=== PATIENT | male | born 1955 | race Caucasian/White ===

== ENCOUNTER 2020-05-04 13:07 | Emergency (ER) | payer OTHER ==
[~2020-05-04] VITALS: Ht 190.5 cm; Wt 108.9 kg
[~2020-05-04 13:07] MED LIST: NAPR550 PO
[2020-05-04 14:37] LABS: BASOPHILS ABSOLUTE AUTO 0.06 K/mm3 (0.00-0.23); BASOPHILS PERCENT AUTO 1 % (0-2); EOSINOPHILS ABSOLUTE AUTO 0.04 K/mm3 (0.00-0.68); EOSINOPHILS PERCENT AUTO 1 % (0-6); Hematocrit 47.4 % (37.0-53.0); IMMATURE GRAN ABSOLUTE AUTO 0.03 K/mm3 (0.00-0.10); IMMATURE GRAN PERCENT AUTO 0 % (0-1); LYMPHOCYTES ABSOLUTE AUTO 1.42 K/mm3 (0.84-5.20); LYMPHOCYTES PERCENT AUTO 17 % (21-46); MONOCYTES ABSOLUTE AUTO 0.86 K/mm3 (0.16-1.47); MONOCYTES PERCENT AUTO 10 % (4-13); Mean Corpuscular HGB 34.1 pg (26.0-34.0); Mean Corpuscular HGB Conc 33.8 g/dL (31.5-36.5); Mean Corpuscular Volume 101 fL (80-100); Mean Platelet Volume 9.3 fL (9.1-12.4); NEUTROPHILS ABSOLUTE AUTO 6.05 K/mm3 (1.96-9.15); NEUTROPHILS PERCENT AUTO 71 % (41-73); Platelet Count 302 K/mm3 (150-400); RDW Coefficient Variation 12.8 % (11.7-14.2); RDW Standard Deviation 47.8 fL (35.1-46.3); Red Blood Cell Count 4.69 M/mm3 (4.30-5.90); White Blood Cell Count 8.46 K/mm3 (4.00-11.30)
[2020-05-04 14:58] LABS: Alanine Aminotransfer (ALT/SGP 83 U/L (12-78); Albumin, Blood 3.8 g/dL (3.4-5.0); Albumin/Globulin Ratio 1.1 (0.8-1.8); Alk Phos 76 U/L (50-136); Anion Gap 4 mmol/L (6-16); Aspartate Aminotrans (AST/SGOT 44 U/L (12-37); Bilirubin, Total 0.9 mg/dL (0.1-1.0); Blood Urea Nitrogen 7 mg/dL (8-24); Bun/Creatinine Ratio 7.2 (12.0-20.0); CO2, Blood 25 mmol/L (21-32); Calcium, Blood 9.3 mg/dL (8.5-10.1); Chloride, Blood 107 mmol/L (98-108); Creatinine, Blood 0.97 mg/dL (0.60-1.20); Globulin, Blood 3.6 g/dL (2.2-4.0); Glomerular Filtration Rate >60 (60-); Glucose, Blood 98 mg/dL (70-99); Potassium, Blood 4.4 mmol/L (3.5-5.5); Sodium, Blood 136 mmol/L (136-145); Total Protein, Blood 7.4 g/dL (6.4-8.2)
[2020-05-05] MEDS ORDERED: CEPH500 PO (10:31)
== END 2020-05-04 16:30 | disposition left against medical advice (07) ==
LOC: ER 13:07
PROVIDERS: Emergency Medicine
DX: S69.92XA Unspecified injury of left wrist, hand and finger(s), initial encounter (principal); X58.XXXA Exposure to other specified factors, initial encounter
CPT/HCPCS: 36415; 80053; 83605; 85025; 99283

== ENCOUNTER 2020-05-05 08:35 | Emergency (ER) | payer OTHER ==
[~2020-05-05] VITALS: Ht 182.9 cm; Wt 111.1 kg
[2020-05-05] MEDS ORDERED: CEPH500 PO (10:31)
== END 2020-05-05 10:39 | disposition home or self-care (01) ==
LOC: ER 08:35
DX: L03.012 Cellulitis of left finger (principal); Z88.5 Allergy status to narcotic agent
CPT/HCPCS: 20600; 73140; 99283-25

== ENCOUNTER 2020-07-04 09:02 | Emergency (ER) | payer OTHER ==
[~2020-07-04] VITALS: Ht 190.5 cm; Wt 108.9 kg
[~2020-07-04 09:02] MED LIST changes: +CEPH500 PO
[2020-07-04] MEDS ORDERED: DILT30 PO (09:14)
[2020-07-04 09:29] LABS: BASOPHILS ABSOLUTE AUTO 0.08 K/mm3 (0.00-0.23); BASOPHILS PERCENT AUTO 1 % (0-2); EOSINOPHILS ABSOLUTE AUTO 0.03 K/mm3 (0.00-0.68); EOSINOPHILS PERCENT AUTO 0 % (0-6); Hematocrit 47.7 % (37.0-53.0); IMMATURE GRAN ABSOLUTE AUTO 0.02 K/mm3 (0.00-0.10); IMMATURE GRAN PERCENT AUTO 0 % (0-1); LYMPHOCYTES ABSOLUTE AUTO 1.17 K/mm3 (0.84-5.20); LYMPHOCYTES PERCENT AUTO 14 % (21-46); MONOCYTES ABSOLUTE AUTO 0.82 K/mm3 (0.16-1.47); MONOCYTES PERCENT AUTO 10 % (4-13); Mean Corpuscular HGB 34.3 pg (26.0-34.0); Mean Corpuscular HGB Conc 33.5 g/dL (31.5-36.5); Mean Corpuscular Volume 102 fL (80-100); Mean Platelet Volume 9.5 fL (9.1-12.4); NEUTROPHILS ABSOLUTE AUTO 6.12 K/mm3 (1.96-9.15); NEUTROPHILS PERCENT AUTO 74 % (41-73); Platelet Count 276 K/mm3 (150-400); RDW Coefficient Variation 12.9 % (11.7-14.2); RDW Standard Deviation 49.5 fL (35.1-46.3); Red Blood Cell Count 4.67 M/mm3 (4.30-5.90); White Blood Cell Count 8.24 K/mm3 (4.00-11.30)
[2020-07-04 09:49] LABS: Source, Urine Clean Catch
[2020-07-04 09:50] LABS: Alanine Aminotransfer (ALT/SGP 57 U/L (12-78); Albumin, Blood 3.8 g/dL (3.4-5.0); Albumin/Globulin Ratio 1.1 (0.8-1.8); Alk Phos 72 U/L (50-136); Anion Gap 7 mmol/L (6-16); Aspartate Aminotrans (AST/SGOT 32 U/L (12-37); Bilirubin, Total 0.6 mg/dL (0.1-1.0); Blood Urea Nitrogen 7 mg/dL (8-24); Bun/Creatinine Ratio 8.5 (12.0-20.0); CO2, Blood 24 mmol/L (21-32); Calcium, Blood 9.1 mg/dL (8.5-10.1); Chloride, Blood 107 mmol/L (98-108); Creatinine, Blood 0.82 mg/dL (0.60-1.20); Globulin, Blood 3.6 g/dL (2.2-4.0); Glomerular Filtration Rate >60 (60-); Glucose, Blood 123 mg/dL (70-99); Potassium, Blood 4.3 mmol/L (3.5-5.5); Sodium, Blood 138 mmol/L (136-145); Total Protein, Blood 7.4 g/dL (6.4-8.2); Troponin I <0.015 ng/mL (0.000-0.040)
[2020-07-04 09:52] LABS: Appearance, Urine Clear (Clear); Bilirubin, Urine Neg (Neg); Blood, Urine 1+ (Neg); Color, Urine Yellow (P-Yellow); Glucose Qualitative, Urine Neg (Neg); Ketones, Urine 3+ (Neg); Leukocyte Esterase, Urine 1+ (Neg); Nitrite, Urine Neg (Neg); Protein, Urine 2+ (Neg); Specific Gravity, Urine 1.015 (1.003-1.022); Urobilinogen, Urine 1+ (Normal); pH, Urine 6.5 (5.0-8.0)
[2020-07-04 10:12] LABS: Bacteria Rare /hpf; Red Blood Cells, Urine 0-2 /hpf (0-2); Squamous Epithelial Cells Rare /hpf (Few); White Blood Cells, Urine 0-2 /hpf (0-5)
[2020-07-04] MEDS ORDERED: Zofran4 MG PO (11:21)
[2020-07-04] MEDS ORDERED: Norco 5-325 Ta1 EACH PO (11:21)
== END 2020-07-04 11:43 | disposition home or self-care (01) ==
LOC: ER 09:02
PROVIDERS: Physician Assistant
DX: R10.9 Unspecified abdominal pain (principal); R19.7 Diarrhea, unspecified; K43.9 Ventral hernia without obstruction or gangrene; I10 Essential (primary) hypertension; Z87.891 Personal history of nicotine dependence
CPT/HCPCS: 71046; 74177; 80053; 81001; 83690; 84484; 85025; 87086; 93005; 93010; 96374-59; 96375; 99285-25; J1170; J2405; Q9967

== ENCOUNTER 2022-08-29 07:57 | Day surgery (SDC) | payer OTHER ==
[~2022-08-29] VITALS: Ht 190.5 cm; Wt 107.6 kg
[~2022-08-29 07:57] MED LIST changes: +DILT30 PO; +GABA300 PO; +Norco 5-325 Ta1 EACH PO; +Zofran4 MG PO
[2022-08-29] MEDS ORDERED: ALLO300 (08:46)
[2022-08-29] MEDS ORDERED: ALBU90OI (08:46)
== END 2022-08-29 10:20 | disposition home or self-care (01) ==
LOC: ORSCSDS 07:57
PROVIDERS: Internal Medicine Gastroenterology
PROC: 0DB68ZX Excision of Stomach, Via Natural or Artificial Opening Endoscopic, Diagnostic (ICD-10-PCS; principal; 2022-08-29 09:30)
DX: R13.10 Dysphagia, unspecified (principal); J44.9 Chronic obstructive pulmonary disease, unspecified; I10 Essential (primary) hypertension; F17.210 Nicotine dependence, cigarettes, uncomplicated; E66.9 Obesity, unspecified; Z79.899 Other long term (current) drug therapy
CPT/HCPCS: 88305; 88342; J2250; J2704; J7120

== ENCOUNTER 2023-08-02 12:52 | Emergency (ER) | payer OTHER ==
[~2023-08-02] VITALS: Ht 182.9 cm; Wt 101.6 kg
[~2023-08-02 12:52] MED LIST changes: +ALBU90OI; +ALLO300
[2023-08-02 14:23] LABS: BASOPHILS ABSOLUTE AUTO 0.09 K/mm3 (0.00-0.23); BASOPHILS PERCENT AUTO 1 % (0-2); EOSINOPHILS ABSOLUTE AUTO 0.07 K/mm3 (0.00-0.68); EOSINOPHILS PERCENT AUTO 1 % (0-6); Hematocrit 38.4 % (37.0-53.0); Hemoglobin 13.4 g/dL (13.5-17.5); IMMATURE GRAN ABSOLUTE AUTO 0.05 K/mm3 (0.00-0.10); IMMATURE GRAN PERCENT AUTO 1 % (0-1); LYMPHOCYTES PERCENT AUTO 14 % (21-46); MONOCYTES ABSOLUTE AUTO 1.13 K/mm3 (0.16-1.47); MONOCYTES PERCENT AUTO 12 % (4-13); Mean Corpuscular HGB 34.1 pg (26.0-34.0); Mean Corpuscular HGB Conc 34.9 g/dL (31.5-36.5); Mean Corpuscular Volume 98 fL (80-100); Mean Platelet Volume 9.3 fL (9.1-12.4); NEUTROPHILS PERCENT AUTO 72 % (41-73); Platelet Count 361 K/mm3 (150-400); RDW Coefficient Variation 12.6 % (11.7-14.2); RDW Standard Deviation 45.2 fL (35.1-46.3); Red Blood Cell Count 3.93 M/mm3 (4.30-5.90); White Blood Cell Count 9.74 K/mm3 (4.00-11.30)
[2023-08-02 14:26] LABS: Albumin/Globulin Ratio 0.9 (0.8-1.8); Bilirubin, Total 0.3 mg/dL (0.1-1.0); Bun/Creatinine Ratio 6.9 (12.0-20.0); Calcium, Blood 8.2 mg/dL (8.5-10.1); Creatinine, Blood 0.58 mg/dL (0.60-1.20); Globulin, Blood 3.2 g/dL (2.2-4.0); Total Protein, Blood 6.2 g/dL (6.4-8.2)
[2023-08-03 05:00] VITALS: BP 175/94
== END 2023-08-03 05:30 ==
LOC: ER 12:52
PROVIDERS: Emergency Medicine
DX: S14.129A Central cord syndrome at unspecified level of cervical spinal cord, initial encounter (principal); S00.03XA Contusion of scalp, initial encounter; R55 Syncope and collapse; I48.91 Unspecified atrial fibrillation; I10 Essential (primary) hypertension; Z87.891 Personal history of nicotine dependence; Z79.899 Other long term (current) drug therapy; Z88.5 Allergy status to narcotic agent; W01.198A Fall on same level from slipping, tripping and stumbling with subsequent striking against other object, initial encounter; Y92.002 Bathroom of unspecified non-institutional (private) residence as the place of occurrence of the external cause; Y93.89 Activity, other specified
CPT/HCPCS: 70450; 72125; 72141; 80053; 85025; 93005; 93010; 96361; 96374; 96375; 96376; 99285-25; A9270; J0780; J1170; J1790; J1885; J2060; J2270; J2405; J7030

== ENCOUNTER 2023-10-31 15:38 | Emergency (ER) | payer OTHER ==
[~2023-10-31] VITALS: Ht 185.4 cm; Wt 90.7 kg
[~2023-10-31 15:38] MED LIST changes: +Cyclobenzaprine5 MG; +IBUP600 PO; +LIDOCAINE1 EAC1 TOP; +MECL25 PO; +ONDA4ODT MM; +OXAYDO5 M1 PO; +OXYC5 PO
[2023-10-31] MEDS ORDERED: Albuterol 2.5 MG/3 ML VIAL INH SCH (16:25)
[2023-10-31 16:31] LABS: BASOPHILS ABSOLUTE AUTO 0.07 K/mm3 (0.00-0.23); BASOPHILS PERCENT AUTO 1 % (0-2); EOSINOPHILS ABSOLUTE AUTO 0.04 K/mm3 (0.00-0.68); EOSINOPHILS PERCENT AUTO 1 % (0-6); Hematocrit 33.9 % (37.0-53.0); Hemoglobin 11.3 g/dL (13.5-17.5); IMMATURE GRAN ABSOLUTE AUTO 0.04 K/mm3 (0.00-0.10); IMMATURE GRAN PERCENT AUTO 1 % (0-1); LYMPHOCYTES ABSOLUTE AUTO 1.31 K/mm3 (0.84-5.20); LYMPHOCYTES PERCENT AUTO 25 % (21-46); MONOCYTES ABSOLUTE AUTO 0.41 K/mm3 (0.16-1.47); MONOCYTES PERCENT AUTO 8 % (4-13); Mean Corpuscular HGB 32.5 pg (26.0-34.0); Mean Corpuscular HGB Conc 33.3 g/dL (31.5-36.5); Mean Corpuscular Volume 97 fL (80-100); Mean Platelet Volume 9.5 fL (9.1-12.4); NEUTROPHILS ABSOLUTE AUTO 3.44 K/mm3 (1.96-9.15); NEUTROPHILS PERCENT AUTO 65 % (41-73); Platelet Count 238 K/mm3 (150-400); RDW Coefficient Variation 16.8 % (11.7-14.2); RDW Standard Deviation 60.5 fL (35.1-46.3); Red Blood Cell Count 3.48 M/mm3 (4.30-5.90); White Blood Cell Count 5.31 K/mm3 (4.00-11.30)
[2023-10-31 16:41] LABS: PCO2 Arterial 45.1 mmHg (35-45); pH Blood Arterial 7.34 (7.35-7.45)
[2023-10-31 16:44] LABS: Magnesium, Blood 1.8 mg/dL (1.6-2.4)
[2023-10-31 17:34] LABS: Influenza A, PCR NEGATIVE (NEGATIVE); Influenza B, PCR NEGATIVE (NEGATIVE); Resp Syncytial Virus, PCR NEGATIVE (NEGATIVE); SARS-Cov-2 (COVID-19) PCR, MMC NEGATIVE (NEGATIVE)
[2023-10-31 18:26] LABS: Albumin, Blood 2.9 g/dL (3.4-5.0); Albumin/Globulin Ratio 0.9 (0.8-1.8); Bilirubin, Total 0.4 mg/dL (0.1-1.0); Calcium, Blood 8.4 mg/dL (8.5-10.1); Creatinine, Blood 0.57 mg/dL (0.60-1.20); Globulin, Blood 3.4 g/dL (2.2-4.0); Total Protein, Blood 6.3 g/dL (6.4-8.2)
[2023-10-31] MEDS ORDERED: NS 1,000 ML IV SCH (18:30)
[2023-10-31 18:45] VITALS: BP 106/81
[2023-10-31 19:08] LABS: Source, Urine Clean Catch
[2023-10-31 19:12] LABS: Appearance, Urine Clear (Clear); Bilirubin, Urine Neg (Neg); Blood, Urine 2+ (Neg); Color, Urine Yellow (P-Yellow); Glucose Qualitative, Urine Neg (Neg); Ketones, Urine 1+ (Neg); Leukocyte Esterase, Urine 1+ (Neg); Nitrite, Urine Pos (Neg); Protein, Urine 2+ (Neg); Specific Gravity, Urine 1.015 (1.003-1.022); Urobilinogen, Urine NORM (Normal)
[2023-10-31 19:28] LABS: Red Blood Cells, Urine 0-2 /hpf (0-2)
[2023-10-31 19:29] LABS: Bacteria Many /hpf; Squamous Epithelial Cells Few /hpf (Few)
[2023-10-31 19:43] LABS: U Amphetamine Screen Not Detected; U Barbituate Screen Not Detected; U Benzodiazapine Screen Not Detected; U Buprenorphine Screen Not Detected; U Cannabinoids Screen DETECTED; U Cocaine Screen Not Detected; U Methadone Screen Not Detected; U Methamphetamine Screen Not Detected; U Opiates Screen Not Detected; U Oxycodone Screen DETECTED; U Phencyclidine Screen Not Detected
[2023-10-31] MEDS ORDERED: Cephalexin Monohydrate 500 MG Cap PO ONE (20:15)
[2023-10-31] MEDS ORDERED: CEPH500 PO (20:17)
[2023-11-11] MEDS ORDERED: ONDA4 PO (11:45)
[2023-11-11] MEDS ORDERED: LIDO700A20 TOP (11:46)
[2023-11-11] MEDS ORDERED: STRIVERDI RESPIM4 G1 INH (11:56)
[2023-11-11] MEDS ORDERED: ACET500 PO (11:57)
[2023-11-11] MEDS ORDERED: ALLO300 PO (11:57)
[2023-11-11] MEDS ORDERED: LORA10ER PO (11:58)
[2023-11-11] MEDS ORDERED: DILT180 PO (11:59)
[2023-11-11] MEDS ORDERED: MULVITA PO (11:59)
[2023-11-19] MEDS ORDERED: LOSA50 PO (12:13)
[2023-11-19] MEDS ORDERED: B-1100 M1 PO (12:13)
[2023-11-19] MEDS ORDERED: OXYC5 PO (13:28)
== END 2023-10-31 20:28 | disposition home or self-care (01) ==
LOC: ER 15:38
PROVIDERS: Student in an Organized Health Care Education/Training Program
DX: N39.0 Urinary tract infection, site not specified (principal); F10.129 Alcohol abuse with intoxication, unspecified; Y90.8 Blood alcohol level of 240 mg/100 ml or more; Z87.891 Personal history of nicotine dependence; I10 Essential (primary) hypertension; M10.9 Gout, unspecified; Z79.899 Other long term (current) drug therapy; Z88.5 Allergy status to narcotic agent
CPT/HCPCS: 0241U; 36600; 70450; 71046; 80053; 81001; 82803; 83735; 85025; 87077; 87086; 87186; 93005; 93010; 94644; 94664; 96360; 96361; 99285-25; A9270; J7030

== ENCOUNTER 2024-04-09 10:12 | Day surgery (SDC) | payer OTHER ==
[~2024-04-09] VITALS: Ht 190.5 cm; Wt 91.3 kg
[~2024-04-09 10:12] MED LIST changes: +ACET500 PO; +ALLO300 PO; +B-1100 M1 PO; +Balanced Salt Epinephrine Irrigation Solution 500 mL IR SCH; +DILT180 PO; +LIDO700A20 TOP; +LORA10ER PO; +LOSA50 PO; +Lidocaine HCl/Pf 1% 5 ML VIAL ONE; +Lidocaine HCl/Pf 1% 5 ML VIAL XX SCH; +MULVITA PO; +Moxifloxacin HCL 0.5 MG/0.1 ML 0.4MLSYR RIGHTEYE SCH; +NS 500 ML IV ONE; +ONDA4 PO; +PHENYLEPHRINE\\TROPICAMIDE\\TETRACAINE OPHTHALMIC DILATING SOLN RIGHTEYE PRN; +Povidone-Iodine 450 DROP/30 ML Solution RIGHTEYE SCH; +STRIVERDI RESPIM4 G1 INH; +Triamcinolone Inj Susp 40 MG / ML 1ML Vial INJ SCH; +Triamcinolone Inj Susp 40 MG / ML 1ML Vial ONE
[2024-04-09] MEDS ORDERED: NS 500 ML IV ONE (11:34)
[2024-04-09] MEDS ORDERED: ALLEGRA ALLERG180 MG PO (11:39)
[2024-04-09] MEDS ORDERED: ALBU90OI INH (11:40)
[2024-04-09] MEDS ORDERED: Midazolam HCl 1MG / ML 2ML Vial ONE ×2 (12:23→12:41)
--- NOTE | 2024-04-09 12:23 | NUR ---
04/09/[address] NOTIFIED THAT PATIENT REPORTS FEELIN SHORT OF BREATH FOR THE LAST 6 MONTHS
[2024-04-09 13:13] VITALS: BP 136/85
== END 2024-04-09 13:21 | disposition home or self-care (01) ==
LOC: ORSCSDS 10:12
PROVIDERS: Ophthalmology
PROC: 08RJ3JZ Replacement of Right Lens with Synthetic Substitute, Percutaneous Approach (ICD-10-PCS; principal; 2024-04-09 12:30)
DX: H25.813 Combined forms of age-related cataract, bilateral (principal); H21.81 Floppy iris syndrome; I48.91 Unspecified atrial fibrillation; J44.9 Chronic obstructive pulmonary disease, unspecified; I10 Essential (primary) hypertension; F17.210 Nicotine dependence, cigarettes, uncomplicated; Z79.899 Other long term (current) drug therapy
CPT/HCPCS: J2001; J2250; J3301; J7040; V2632

== ENCOUNTER 2025-04-03 05:37 | Inpatient (IN) | payer OTHER ==
[~2025-04-03] VITALS: Ht 190.5 cm; Wt 87.4 kg
[~2025-04-03 05:37] MED LIST changes: +ALBU90OI INH; +ALLEGRA ALLERG180 MG PO; -Balanced Salt Epinephrine Irrigation Solution 500 mL IR SCH; -Lidocaine HCl/Pf 1% 5 ML VIAL ONE; -Lidocaine HCl/Pf 1% 5 ML VIAL XX SCH; -Moxifloxacin HCL 0.5 MG/0.1 ML 0.4MLSYR RIGHTEYE SCH; -NS 500 ML IV ONE; -PHENYLEPHRINE\\TROPICAMIDE\\TETRACAINE OPHTHALMIC DILATING SOLN RIGHTEYE PRN; -Povidone-Iodine 450 DROP/30 ML Solution RIGHTEYE SCH; -Triamcinolone Inj Susp 40 MG / ML 1ML Vial INJ SCH; -Triamcinolone Inj Susp 40 MG / ML 1ML Vial ONE
[2025-04-03 06:01] LABS: BASOPHILS ABSOLUTE AUTO 0.07 K/mm3 (0.00-0.23); BASOPHILS PERCENT AUTO 1 % (0-2); EOSINOPHILS ABSOLUTE AUTO 0.05 K/mm3 (0.00-0.68); EOSINOPHILS PERCENT AUTO 1 % (0-6); Hematocrit 29.4 % (37.0-53.0); Hemoglobin 10.0 g/dL (13.5-17.5); IMMATURE GRAN ABSOLUTE AUTO 0.03 K/mm3 (0.00-0.10); IMMATURE GRAN PERCENT AUTO 0 % (0-1); LYMPHOCYTES ABSOLUTE AUTO 1.00 K/mm3 (0.84-5.20); LYMPHOCYTES PERCENT AUTO 12 % (21-46); MONOCYTES ABSOLUTE AUTO 1.12 K/mm3 (0.16-1.47); MONOCYTES PERCENT AUTO 14 % (4-13); Mean Corpuscular HGB Conc 34.0 g/dL (31.5-36.5); Mean Corpuscular Volume 91 fL (80-100); NEUTROPHILS ABSOLUTE AUTO 5.87 K/mm3 (1.96-9.15); NEUTROPHILS PERCENT AUTO 72 % (41-73); NRBC ABSOLUTE 0.00 K/mm3 (0.00-0.02); NRBC Auto 0.0 /100 WBC (0.0-0.2); Platelet Count 321 K/mm3 (150-400); RDW Coefficient Variation 15.3 % (11.7-14.2); RDW Standard Deviation 50.7 fL (35.1-46.3)
[2025-04-03 06:31] LABS: Alanine Aminotransfer (ALT/SGP 29.0 U/L (12-78); Albumin, Blood 2.8 g/dL (3.4-5.0); Albumin/Globulin Ratio 0.8 (0.8-1.8); Anion Gap 9.0 mmol/L (3-11); Aspartate Aminotrans (AST/SGOT 26.0 U/L (12-37); Bilirubin, Total 0.3 mg/dL (0.1-1.0); Blood Urea Nitrogen 4.0 mg/dL (8-24); CO2, Blood 21.0 mmol/L (21-32); Calcium, Blood 8.2 mg/dL (8.5-10.1); Chloride, Blood 99.0 mmol/L (98-108); Creatinine, Blood 0.64 mg/dL (0.60-1.20); Globulin, Blood 3.4 g/dL (2.2-4.0); Glucose, Blood 107.0 mg/dL (70-99); Potassium, Blood 4.7 mmol/L (3.5-5.5); Sodium, Blood 124.0 mmol/L (136-145); Total Protein, Blood 6.2 g/dL (6.4-8.2)
[2025-04-03 08:19] LABS: Source, Urine Clean Catch
[2025-04-03 08:45] LABS: Sodium, Urine, Random 16 mmol/L (20-110)
[2025-04-03 08:46] LABS: Bilirubin, Urine Neg (Neg); Color, Urine Yellow (P-Yellow); Glucose Qualitative, Urine Neg (Neg); Ketones, Urine Neg (Neg); Leukocyte Esterase, Urine Neg (Neg); Protein, Urine Neg (Neg); Specific Gravity, Urine 1.010 (1.003-1.022); Urobilinogen, Urine NORM (Normal)
[2025-04-03 08:51] LABS: Osmolality, Urine 150 mos/kg (15-1400)
[2025-04-03 10:10] VITALS: BP 160/87
--- NOTE | 2025-04-03 11:28 | NUR ---
ADMISSION NOTE: PATIENT ARRIVES TO ROOM VIA WC AT 1005 FROM ER FOR DX'S OF HYPONATREMIA. PATIENT TRANSFERRED TO BED c SBA. PATIENT ADMISSION, SKIN ASSESSMENT c 2 RN'S VERIFIED AND [facility]REC COMPLETED. PATIENT ORIENTATED TO ROOM AND CALL SYSTEM. PATIENT A/OX4, ANSWER TO QUESTIONS APPROPRIATELY AND ABLE TO MAKE NEEDS KNOWN. PATIENT REPORTS DRINKS 6 CANS OF BEER (BUDWEISER) DAILY LAST ALCOHOL INTAKE WAS YESTERDAY AFTERNOON 04/02/25 AND SMOKE ONE PACK OF CIGARETTE DAILY. PATIENT OFFERED NICOTINE PATCH AND AGREED TO USE WHILE IN THE HOSPITAL. PATIENT REPORTS LEGS CRAMPING. PATIENT HAS OPEN WOUND TO ABDOMEN, PHOTO'S TAKEN AND FILED IN CHART. DR. SHARIF NOTIFIED DURING ROUNDING THIS MORNING. ADMISSION VITALS TAKEN. CALL LIGHT IN REACH.
[2025-04-03 13:58] VITALS: BP 119/69
[2025-04-03] MEDS ORDERED: Albuterol HFA200 ACT/6.7 GM INH INH PRN (14:00)
[2025-04-03] MEDS ORDERED: Albuterol 2.5 MG/3 ML VIAL INH SCH (14:00)
[2025-04-03] MEDS ORDERED: Diltiazem HCl 180 MG Cap.CD PO SCH (14:00)
--- NOTE | 2025-04-03 15:01 | NUR ---
AMA NOTE: PATIENT ADMITTED FOR HYPONATREMIA. PATIENT RECEIVED PO SODIUM BICARB PER ORDER. PATIENT STATED "I CAN TAKE THIS TABLET AT HOME, I THOUGHT I AM GETTING FLUIDS." PATIENT EDUCATED THE BENIFITS OF GETTING PO SODIUM BICARB AND NOT GETTING IV GTT. PATIENT VERBALIZES UNDERSTANDING AND REQUESTING TO GO HOME. PATIENT VERBALIZES STATED" I DON'T WANNA BE COOPED UP IN THE HOSPITAL. I CANNOT GO OUTSIDE AND SMOKE. I DON'T WANNA BE HERE TO BEGIN WITH." NOTIFIED DR. SHARIF AND SHE CAME OVER TO ROOM AND EDUCATED THE PATIENT REGARDING ADMITTING DX AND TX PLAN IN PLACED. PATIENT CONTINUES TO VERBALIZED UNDERSTANDING AND STILL REQUESTING TO GO HOME. PATIENT EDUCATED c RISK/BENEFITS OF LEAVING THE HOSPITAL AGINST MEDICAL ADVICE. PATIENT LEFT AMA AT 1500. INTERNAL GRINDER SET UP OPERATORRON NOTIFIED.
[2025-04-04] MEDS ORDERED: Multivitamins 1 Tab PO SCH (09:00)
[2025-04-04] MEDS ORDERED: Enoxaparin 40 MG/0.4 ML SYR SC SCH (09:00)
== END 2025-04-03 14:48 | disposition left against medical advice (07) | DRG 645 ==
LOC: ER 05:37 → MEDS 08:29
PROVIDERS: Emergency Medicine; ADMIT Internal Medicine
DX: E22.2 Syndrome of inappropriate secretion of antidiuretic hormone (principal); I48.0 Paroxysmal atrial fibrillation; J44.9 Chronic obstructive pulmonary disease, unspecified; M10.9 Gout, unspecified; R53.1 Weakness; F32.A Depression, unspecified; I10 Essential (primary) hypertension; N40.0 Benign prostatic hyperplasia without lower urinary tract symptoms; Z96.642 Presence of left artificial hip joint; Z60.2 Problems related to living alone; I71.43 Infrarenal abdominal aortic aneurysm, without rupture; Z53.29 Procedure and treatment not carried out because of patient's decision for other reasons; Z98.890 Other specified postprocedural states; Z88.5 Allergy status to narcotic agent; Z79.899 Other long term (current) drug therapy; Z87.891 Personal history of nicotine dependence
CPT/HCPCS: 71046; 80053; 81003; 83880; 83930; 83935; 84300; 85025; 93005; 93010; 97110; 97162; 99284-25; A9270; J3411